=== PATIENT | male | born 1945 | race Caucasian/White ===

== ENCOUNTER → 2017-03-21 | Outpatient (CLI) | payer OTHER, BC ==
[~2017-03-21] MED LIST: GADOBUTROL 10 ML VIAL IVP ONE
== END ==
LOC: FIMAGING 06:38
PROVIDERS: ATTEND Internal Medicine Hematology & Oncology
DX: Z12.89 Encounter for screening for malignant neoplasm of other sites (principal); C15.9 Malignant neoplasm of esophagus, unspecified
CPT/HCPCS: 70553; A9585

== ENCOUNTER 2018-12-20 04:57 | Inpatient (IN) | payer OTHER, BC ==
[2018-12-20] MEDS ORDERED: ACETAMINOPHEN 500 MG TAB PO ONE (05:19)
[2018-12-20] MEDS ORDERED: ceFAZolin 2 GM/DEXTROSE 100 ML IV ONE (05:19)
[2018-12-20] MEDS ORDERED: GABAPENTIN 300 MG CAP PO ONE (05:19)
[2018-12-20] MEDS ORDERED: morphINE SR 15 MG TAB PO ONE (05:19)
[2018-12-20] MEDS ORDERED: LR 1,000 ML IV ONE (05:20)
[2018-12-20] MEDS ORDERED: LIDOCAINE 1% 2 ML INJ ID PRN (05:20)
[2018-12-20] MEDS ORDERED: GADOBUTROL 10 ML VIAL IVP ONE (06:10)
[2018-12-20] MEDS ORDERED: THROMBIN (BOVINE) 5,000 UNIT VIAL TP ONE (06:47)
[2018-12-20] MEDS ORDERED: MANNITOL 20% 100 GM/500 ML BAG IV ONE (06:47)
[2018-12-20] MEDS ORDERED: AVITENE POWDER 1 GM JAR TP ONE (06:47)
[2018-12-20] MEDS ORDERED: CHLORHEXIDINE GLUC HIBICLENS 118 ML BTL TP ONE (06:47)
[2018-12-20] MEDS ORDERED: BUPIVACAINE 0.25% 30 ML SDV ONE (06:47)
[2018-12-20] MEDS ORDERED: EPINEPHrine 1 MG/ML INJ ONE (06:48)
[2018-12-20] MEDS ORDERED: REMIFENTANIL HCL 1 MG VIAL ONE ×2 (06:48→10:40)
[2018-12-20] MEDS ORDERED: fentaNYL 100 MCG/2 ML INJ ONE (06:48)
[2018-12-20] MEDS ORDERED: PROPOFOL/EMULSION 500 MG/50 ML BOTTLE IV ONE ×2 (06:49→10:39)
[2018-12-20] MEDS ORDERED: BACITRACIN 50,000 UNITS/10 ML SYR IRR ONE (06:49)
[2018-12-20] MEDS ORDERED: PROPOFOL 200 MG/20 ML VIAL ONE (06:49)
--- NOTE | 2018-12-20 06:50 | PDHPUP ---
History & Physical Update H&P update statement: This history and physical update is based on an assessment of the patient which was completed after admission or registration (within 24 hours), but prior to the surgery/procedure. H&P update: H&P reviewed & patient examined, no change in patient's condition since H&P completed (Consents signed. Site marked. All questions answered. )
[2018-12-20] MEDS ORDERED: LIDOCAINE 2% 100 MG/5 ML SYR ONE (06:52)
[2018-12-20] MEDS ORDERED: MIDAZOLAM 2 MG/2 ML VIAL IVP ONE (07:12)
--- NOTE | 2018-12-20 07:12 | PDANEPAE ---
ANE History of Present Illness posterior tumor here for crani ANE Past Medical History - Cardiovascular History Hx Hypertension: Yes Hx Arrhythmias: No Hx Chest Pain: No Hx Coronary Artery / Peripheral Vascular Disease: No Hx CHF / Valvular Disease: No Hx Palpitations: No Cardiovascular History Comment: pcp monitors bp medications - Pulmonary History Hx COPD: No Hx Asthma/Reactive Airway Disease: No Hx Recent Upper Respiratory Infection: No Hx Oxygen in Use at Home: No Hx Sleep Apnea: No Sleep Apnea Screening Result - Last Documented: Positive Pulmonary History Comment: iza triggers - Neurologic History Hx Cerebrovascular Accident: No Hx Seizures: No Hx Dementia: No Neurologic History Comment: DDD. cerebellar mass currently - Endocrine History Hx Diabetes: Yes Endocrine History Comment: type 2 no medications currently - Renal History Hx Renal Disorders: Yes Renal History Comment: hx of kidney stones. BPH. hx of urolift with Gwyn - Liver History Hx Hepatic Disorders: No - Neurological & Psychiatric Hx Hx Neurological and Psychiatric Disorders: No - Cancer History Hx Cancer: Yes Cancer History Comment: stomach/ esophagus with chemo - Congenital Disorder History Hx Congenital Disorders: No - GI History Hx Gastrointestinal Disorders: Yes Gastrointestinal History Comment: reflux - Other Health History Other Health History: reading glasses - Chronic Pain History Chronic Pain: Yes (back) - Surgical History Prior Surgeries: appy. urolift. port placement. EGD. right partial knee with Li 04/16/14. left knee scope with Li 09/12/12. right knee. RT THUMB. nephrolithiasis ANE Review of Systems Review of Systems: - Exercise capacity METS (RN): 4 METS ANE Patient History - Allergies Allergies/Adverse Reactions: contrast dye Allergy (Uncoded 12/19/18 15:42) Hives - Home Medications Home Medications: Aspirin [Aspirin 81mg (*)] 04/08/14 [Last Taken 12/12/18] celeCOXIB [Celebrex (*)] 04/08/14 [Last Taken 12/13/18] Herbals/Supplements -Info Only 12/19/18 [Last Taken 12/12/18] Irbesartan 12/19/18 [Last Taken 12/20/18 04:00] Pantoprazole Sodium 12/19/18 [Last Taken 12/20/18 04:00] - NPO status NPO Status: no food or drink >8 hours NPO Since - Liquids (Date): 12/19/18 NPO Since - Liquids (Time): 22:00 NPO Since - Solids (Date): 12/19/18 NPO Since - Solids (Time): 18:00 - Anes Hx Anes Hx: no prior problems - Smoking Hx Smoking Status: Former smoker - Alcohol Use Alcohol Use: Rarely - Family Anes Hx Family Anes Hx: none Family Hx Anesthesia Complications: none ANE Labs/Vital Signs - Vital Signs Blood Pressure: 116/84 Heart Rate: 77 Respiratory Rate: 18 O2 Sat (%): 93 Height: 190.05 cm Weight: 86.183 kg ANE Physical Exam - Airway Neck exam: FROM Mallampati Score: Class 2 Mouth exam: normal dental/mouth exam - Pulmonary Pulmonary: no respiratory distress, clear to auscultation - Cardiovascular Cardiovascular: regular rate and rhythym, no murmur, rub, or gallop - ASA Status ASA Status: III ANE Anesthesia Plan Anesthesia Plan: general endotracheal anesthesia Lines/Monitors: arterial line, additional IV Total IV Anesthesia: Yes
[2018-12-20] MEDS ORDERED: THROMBIN (BOVINE) 20,000 UNIT VIAL TP ONE (07:33)
[2018-12-20] MEDS ORDERED: niCARdipine/NACL/200 ML BAG IV ONE (08:15)
[2018-12-20] MEDS ORDERED: GENTAMICIN SULFATE 80 MG/2 ML VIAL ONE (08:42)
[2018-12-20] MEDS ORDERED: HYDROGEN PEROXIDE 236 ML BOTTLE TP ONE (09:28)
[2018-12-20] MEDS ORDERED: ROCURONIUM 50 MG/5 ML VIAL ONE (10:10)
[2018-12-20] MEDS ORDERED: BACITRACIN ZINC 0.5 OZ OINTTUBE TP ONE (12:06)
[2018-12-20] MEDS ORDERED: PROMETHAZINE HCL 25 MG/ML INJ IVP PRN (12:26)
[2018-12-20] MEDS ORDERED: ACETAMINOPHEN 500 MG TAB PO PRN (12:26)
[2018-12-20] MEDS ORDERED: LR 500 ML IV PRN (12:26)
[2018-12-20] MEDS ORDERED: oxyCODONE IR 5 MG TAB PO PRN (12:26)
[2018-12-20] MEDS ORDERED: fentaNYL 100 MCG/2 ML INJ IVP PRN (12:26)
[2018-12-20] MEDS ORDERED: HYDROmorphONE/DILAUDID 2 MG/ML INJ IVP PRN (12:26)
[2018-12-20] MEDS ORDERED: ONDANSETRON 4 MG/2 ML VIAL IVP PRN (12:26)
[2018-12-20] MEDS ORDERED: HYDROCODONE/APAP 5/325 TAB PO PRN (12:26)
[2018-12-20] MEDS ORDERED: NALOXONE HCL 0.4 MG/ML INJ IVP PRN (12:26)
--- NOTE | 2018-12-20 12:27 | POSTANESTH ---
Post Anesthetic Evaluation Cardiovascular Status: Normal, Stable, Similar to Pre-Op Cond Respiratory Status: Normal, Stable, Similar to Pre-op Cond. Level of Consciousness/Mental Status: Can Participate in Eval, Alert and Oriented Pain Control: Adequate, Prn Tx Ordered Nausea/Vomiting Control: Adequate, Prn Tx Ordered Complications Possibly Related to Anesthesia: None Noted
[2018-12-20] MEDS ORDERED: BISACODYL 10 MG SUPP PR PRN (12:28)
[2018-12-20] MEDS ORDERED: POLYETHYLENE GLYCOL 3350 17 GM PKT PO PRN (12:28)
[2018-12-20] MEDS ORDERED: MAGNESIUM HYDROXIDE 30 ML UDCUP PO PRN (12:28)
[2018-12-20] MEDS ORDERED: LACTULOSE 20 GM/30 ML UDCUP PO PRN (12:28)
[2018-12-20] MEDS ORDERED: ACETAMINOPHEN 325 MG TAB PO PRN (12:28)
--- NOTE | 2018-12-20 12:39 | POSTOPPROG ---
Post Op Note Date of Operation: 12/20/18 Surgeon: Rufino Lutz Blower Blast Furnace: GUY Grijalva PAC Anesthesia: GET(General Endotracheal) Pre-op Diagnosis: right cerebellar brain lesion Post-op Diagnosis: right cerebellar brain lesion Indication: right cerebellar brain lesion Procedure: right cerebellar cranitomy Inf/Abcess present in the surg proc area at time of surgery?: No EBL: 50-100 Drains: Usman BENITEZ Addendum - Addendum .: S: Resting comfortably O: NAD A&Ox3 CN II-XII grossly MAEx4 5/5 and equal in BUE and BLE A/P 73 yo s/p right cerebellar craniotomy -Post op MRI pending -Path and microbiology cx pending -ICU for post op care -Decadron 4mg q6 -Advance deit as tolerated -DVT prophx: TEds, SCDs, Lovenox okay POD3 -Please notify NS with in change in neuro/motor exam
[2018-12-20] MEDS: NS W/ 20 KCl/L 1,000 ML IV SCH ×2 (13:49→23:53)
--- NOTE | 2018-12-20 14:36 | GOP ---
[f rep st] OPERATIVE REPORT DATE OF OPERATION: 12/20/2018 SURGEON: Rufino Lutz MD DANCE HALL HOST/HOSTESS: Rachel Grijalva PA-C. ANESTHESIA: General. PREOPERATIVE DIAGNOSIS: 1. Right-sided cerebellar mass with neurological deficit. 2. 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 POSTOPERATIVE DIAGNOSIS: 1. Right-sided cerebellar mass with neurological deficit. 2. 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 PROCEDURE PERFORMED: 1. Suboccipital craniotomy with right-sided open biopsy and gross total resection of cerebellar mass. 2. Use of intraoperative 3D Stealth navigation. 3. Use of intraoperative ultrasound. 4. Use of the operating microscope. 5. Use of intraoperative neuro monitoring. FINDINGS: per imaging with a liquified mass in the right cerebellum SPECIMENS: Tissue was sent both to Pathology for frozen analysis, as well as to Microbiology for analysis. ESTIMATED BLOOD LOSS: 150 mL. INDICATIONS: The patient is a very pleasant 73-year-old gentleman, who has a known history of squamous cell carcinoma and was seen in my office for spinal stenosis and difficulty with balance. He then fell a month or 2 ago while out of state and imaging demonstrated a large 4 cm right cerebellar mass, likely consistent with squamous cell carcinoma. Given the mass effect and size, I talked to his oncologist, Dr. Sarabia, who endorsed surgical biopsy and resection and/or debulking, followed by chemo and radiation therapy. I discussed these options with the patient and his and they agreed to proceed forth with surgery as described above. DESCRIPTION OF PROCEDURE: The patient was brought to the operating theater and underwent general endotracheal anesthesia without complication. He had Venodynes, PAYTON hose, and the appropriate lines placed by Anesthesia. He was placed in the Tejeda head-verdugo device and flipped prone onto the standard table, at which point he was affixed to the table in a tuck position. The patient's scalp was merged with the 3D navigation system. We then picked our entry point to give us the best approach to the right-sided cerebellar mass in the right suboccipital space. We marked out an incision over the midline with a hockey stick toward the right side over the right-sided transverse sinus. This area was then prepped and draped in the usual sterile surgical fashion. A time-out was completed per protocol, and the patient received antibiotics, mannitol, and steroids within 1 hour of incision. The patient was then hyperventilated. The incision was infiltrated with Marcaine with epinephrine. The incision was then taken down the midline through the avascular nuchal plane, and we completed a right-sided hockey stick over the right transverse sinus. The tissues were reflected in a subperiosteal dissection to the right side, and deep retractors were placed to maintain our exposure. We skeletonized the inferior aspect of the foramen magnum. Using the high speed drill, we completed a right-sided craniotomy over the cerebellar hemisphere and passed the bone off the field. The ultrasound was brought in the field to confirm the location of the tumor underneath the location of the craniotomy. We opened the dura with pickups and scissors following the superomedial aspects of the bone flap and with the base of the flap laterally. At this point, we confirmed the location of the tumor using the 3D Inverted Edge navigation system. I then made a small, approximately 2-3 cm horizontal corticectomy inferiorly in the right-sided cerebellar hemisphere. We continued to the center of the mass and all of a sudden, he had evidence of whitish- appearing liquified tissue which I was concerned about possible infection. We sent this off to microbiology, and Gram stain came back negative. At this point , I then used both gentle suction and microsurgical technique with the microscope including the CUSA to remove the tissues. There was no clear distinction between the tissue itself and the patient's cerebellum. I completed what I felt was a gross total resection. We obtained hemostasis with the bipolar. We then lined the surgical cavity with Surgicel. We then closed the dura to the overlying dura with running 4-0 Nurolon sutures. A small piece of duragen was placed over the dura. The bone was re-affixed to the overlying calvarium with the plating system. The wound was irrigated with gentamicin irrigation. We then closed the wound in multiple layers using Vicryl sutures for the deep layers and a running nylon stitch for the skin. The patient's wounds were dressed sterilely. He was flipped supine onto the transfer cart where he was taken out of the Anthony head-verdugo device. The patient was extubated and taken to recovery room in stable neurologic condition. There were no complications and no noted changes on neuromonitoring throughout the procedure. COMPLICATIONS: None. /[id number]/MODL MTDD
--- NOTE | 2018-12-20 14:58 | PDMN ---
Medical Necessity Medical necessity: Pt meets IP criteria as of 12/20/2018 per and [facility] ( Neurosurgery GRG, Craniectomy for excision of brain tumor); Medicare IP only procedure
[2018-12-20] MEDS: DEXAMETHASONE 4 MG/ML VIAL IVP SCH ×2 (17:03→23:52)
[2018-12-20] MEDS: SENNOSIDES/DOCUSATE SODIUM TAB PO SCH (21:10)
[2018-12-20] MEDS: METHOCARBAMOL 750 MG TAB PO PRN (21:10)
[2018-12-21] MEDS: DEXAMETHASONE 4 MG/ML VIAL IVP SCH ×2 (06:03→13:11)
[2018-12-21] MEDS ORDERED: GADOBUTROL 10 ML VIAL IVP ONE (08:15)
--- NOTE | 2018-12-21 08:58 | NEUSURGPN ---
Assessment/Plan: A/P 73 yo s/p right cerebellar craniotomy POD1 -Post op MRI pending -Path and microbiology cx pending -Continue Decadron 4mg q6 -Optimize pain management -DVT prophx: TEDs, SCDs, Lovenox okay POD3 -Please notify NS with in change in neuro/motor exam Subjective: Denies any visual changes or weakness. Has some low back pain from known degeneration/stenosis Objective: NAD A&Ox3 CN II-XII grossly PERRLA EOMI MAEx4 5/5 and equal in BUE and BLE Dressing with some sanguineous staining Catheter Insertion Date: 12/20/18 - Physician Discussed Patient with DrYamile: [facility] Physical Exam - Vitals, I&O, Labs I and O 12/20/18 12/21/18 12/22/18 05:59 05:59 05:59 Intake Total 3830 Output Total 2570 Balance 1260 Weight 86.183 kg 86.183 kg Intake: Oral (ml) 100 IV Intake (ml) 2409 IV Infused (ml) 1321 NS W/ 20 KCl/L 1,000 ml @ 1321 100 mls/hr IV CONT YARON Rx#:[id number] Output: Urine (ml) 2420 Catheter 2420 Estimated Blood Loss (ml) 150 Microbiology 12/20/18 09:13 Mycobacterial Smear (JESS) - Final Brain - Other 12/20/18 09:13 Gram Stain - Final Brain - Other 12/20/18 09:13 Gram Stain - Final Brain - Other 12/20/18 09:13 Gram Stain - Final Brain - Other Vital Signs Temp Pulse Resp BP Pulse Ox 36.6 C 112 H 20 163/85 H 90 L 12/21/18 08:00 12/21/18 08:00 12/21/18 08:00 12/21/18 08:00 12/21/18 08:00 ICD10 Worksheet Patient Problems: Problems Problem Status Onset Knee osteoarthritis Acute
[2018-12-21] MEDS: SENNOSIDES/DOCUSATE SODIUM TAB PO SCH ×2 (09:29→20:41)
--- NOTE | 2018-12-21 12:20 | ASMTCASEMG ---
Living Arrangements What is your living Answers: With Spouse arrangement? Who do you live with? Type Of Residence What kind of residence do Answers: House you live in? Discharge Plan Comments Coordination Status Comments Notes: Patient is a 73yo male who has a several week hx of worsening balance, gait, ataxia, and dizziness. Patient has elected to have surgery, suboccipital craniotomy with right cerebellar tumor open biopsy and resection. PT/OT therapy evals have been ordered. Dr. Sarabia is the patient's oncologist. D/C plan TBD. CM will follow. Date Signed: 12/21/2018 12:19 PM Electronically Signed By:Nat Dolan LCSW
[2018-12-21] MEDS ORDERED: *MD ORDERING ONLY-DEXAMETHASONE TAPER IVP/PO SCH (13:45)
[2018-12-21] MEDS: DEXAMETHASONE 4 MG TAB PO SCH (20:40)
[2018-12-22] MEDS: METHOCARBAMOL 750 MG TAB PO PRN ×3 (03:21→23:35)
[2018-12-22] MEDS: DEXAMETHASONE 4 MG TAB PO SCH ×3 (06:38→20:48)
[2018-12-22] MEDS: SENNOSIDES/DOCUSATE SODIUM TAB PO SCH ×2 (08:29→20:48)
--- NOTE | 2018-12-22 09:49 | NEUSURGPN ---
Assessment/Plan: Assessment/Plan: A/P 73 yo s/p right cerebellar craniotomy POD2 -Post op MRI shows good resection and a very small infarct near the resection cavity. This can be expected to see post surgery and the patient does not currently have any new deficits. -Path and microbiology cx pending- all cultures are negative thus far -Pathology is still pending. Oncology has been consulted as well. 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 Has some slight discomfort in his incision and his shoulders but this was treated well with Robaxin last night. Has been up with PT yesterday and went well. Objective: NAD A&Ox3 CN II-XII grossly PERRLA EOMI MAEx4 5/5 and equal in BUE and BLE Dressing with some sanguineous staining Catheter Insertion Date: 12/20/18 - Physician Discussed Patient with : [facility] Physical Exam - Vitals, I&O, Labs I and O 12/21/18 12/22/18 12/23/18 05:59 05:59 05:59 Intake Total 3830 750 Output Total 2570 Balance 1260 750 Weight 86.183 kg Intake: Oral (ml) 100 750 IV Intake (ml) 2409 IV Infused (ml) 1321 NS W/ 20 KCl/L 1,000 ml @ 1321 100 mls/hr IV CONT YARON Rx#:[id number] Output: Urine (ml) 2420 Catheter 2420 Estimated Blood Loss (ml) 150 Other: Number of Voids Catheter 1 Toilet 1 Microbiology 12/20/18 09:13 Gram Stain - Final Brain - Other 12/20/18 09:13 Gram Stain - Final Brain - Other 12/20/18 09:13 Gram Stain - Final Brain - Other Vital Signs Temp Pulse Resp BP Pulse Ox 36.7 C 74 14 145/86 H 94 12/22/18 07:56 12/22/18 07:56 12/22/18 07:56 12/22/18 07:56 12/22/18 07:56 ICD10 Worksheet Patient Problems: Problems Problem Status Onset Knee osteoarthritis Acute
--- NOTE | 2018-12-22 15:07 | ASMTCMCOM ---
CM Note CM Note Notes: Reviewed chart, spoke with Dr. Sparks regarding discharge plan of care, pt's progress. OT recommends home vs HHC. PT recommends home with [address] Sparks recommending home with home health care (HHC). Discharge plan remains unclear at this time. CM will continue to follow. Discharge Plan: Home with possible HHC and 24 hr supervision Date Signed: 12/22/2018 03:06 PM Electronically Signed By:Annie Delaney RN
[2018-12-23] MEDS: SENNOSIDES/DOCUSATE SODIUM TAB PO SCH ×2 (08:36→20:24)
[2018-12-23] MEDS: DEXAMETHASONE 4 MG TAB PO SCH (08:36)
[2018-12-23] MEDS: IRBESARTAN 150 MG TAB PO SCH (08:36)
[2018-12-23] MEDS: ENOXAPARIN 40 MG/0.4 ML SYR SC SCH (08:36)
--- NOTE | 2018-12-23 09:44 | NEUSURGPN ---
Assessment/Plan: Assessment/Plan: A/P 73 yo s/p right cerebellar craniotomy POD3 for brain compression d/t cerebellar mass -Post op MRI shows good resection and a very small infarct near the resection cavity. This can be expected to see post surgery and the patient does not currently have any new deficits. -Path and microbiology cx pending- all cultures are negative thus far -Pathology is still pending. Oncology has been consulted as well. 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 Take head wrap off and dress incision with bacitracin -Dispo planning- pending therapies but most likely tomorrow with [facility] -DVT prophx: TEDs, SCDs, Lovenox okay POD3 -Please notify NS with in change in neuro/motor exam Subjective: Doing well, had a better day yesterday with therapies. Has some mild incisional pain, but no headaches. He still feels very fatigued. Objective: NAD A&Ox3 CN II-XII grossly PERRLA EOMI MAEx4 5/5 and equal in BUE and BLE Dressing with some sanguineous staining Catheter Insertion Date: 12/20/18 - Physician Discussed Patient with : [facility] Physical Exam - Vitals, I&O, Labs I and O 12/22/18 12/23/18 12/24/18 05:59 05:59 05:59 Intake Total 750 400 Balance 750 400 Intake: Oral (ml) 750 400 Other: Intake Quantity Yes Sufficient Number of Voids Catheter 1 Toilet 1 1 1 Number of Stools Toilet 1 Microbiology 12/20/18 09:13 Gram Stain - Final Brain - Other 12/20/18 09:13 Gram Stain - Final Brain - Other 12/20/18 09:13 Gram Stain - Final Brain - Other Vital Signs Temp Pulse Resp BP Pulse Ox 36.9 C 89 15 124/104 H 91 L 12/23/18 07:50 12/23/18 07:50 12/23/18 07:50 12/23/18 07:50 12/23/18 07:50 ICD10 Worksheet Patient Problems: Problems Problem Status Onset Knee osteoarthritis Acute
[2018-12-23] MEDS: DEXAMETHASONE 2 MG TAB PO SCH (20:24)
[2018-12-24] MEDS: IRBESARTAN 150 MG TAB PO SCH (08:36)
[2018-12-24 08:37] VITALS: BP 127/88
[2018-12-24] MEDS: DEXAMETHASONE 2 MG TAB PO SCH (08:37)
[2018-12-24] MEDS: SENNOSIDES/DOCUSATE SODIUM TAB PO SCH (08:37)
[2018-12-24] MEDS: ENOXAPARIN 40 MG/0.4 ML SYR SC SCH (08:37)
--- NOTE | 2018-12-24 08:49 | NEUSURGPN ---
Assessment/Plan: A/P 73 yo s/p right cerebellar craniotomy POD4 for brain compression d/t cerebellar mass -Post op MRI shows good resection and a very small infarct near the resection cavity. This can be expected to see post surgery and the patient does not currently have any new deficits. Discussed with patient this morning -Path and microbiology cx pending- all cultures are negative thus far -Pathology is still pending. Oncology has been notified. 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 Take head wrap off and dress incision with bacitracin -Dispo planning-likely to rehab as patient notes his gait is still unstable. Okay to d/c once bed available -DVT prophx: TEDs, SCDs, Lovenox -Please notify NS with in change in neuro/motor exam -Discussed with Dr. Lutz Subjective: Denies any headache, nausea, dizziness Objective: NAD A&Ox3 CN II-XII grossly PERRLA EOMI MAEx4 03/24 and equal in BUE and BLE Incision c/d/i Catheter Insertion Date: 12/20/18 - Physician Discussed Patient with : [facility] Physical Exam - Vitals, I&O, Labs I and O 12/23/18 12/24/18 12/25/18 05:59 05:59 05:59 Intake Total 400 250 Balance 400 250 Intake: Oral (ml) 400 250 Other: Intake Quantity Yes Yes Sufficient Number of Voids Toilet 1 1 Number of Stools Toilet 1 Microbiology 12/20/18 09:13 Gram Stain - Final Brain - Other 12/20/18 09:13 Gram Stain - Final Brain - Other 12/20/18 09:13 Gram Stain - Final Brain - Other Vital Signs Temp Pulse Resp BP Pulse Ox 37.1 C 79 15 127/88 H 96 12/24/18 07:18 12/24/18 07:18 12/24/18 00:00 12/24/18 08:36 12/24/18 07:18 ICD10 Worksheet Patient Problems: Problems Problem Status Onset Knee osteoarthritis Acute
--- NOTE | 2018-12-24 09:33 | ASMTCMCOM ---
CM Note CM Note Notes: CM met with pt and Susana who requested a SNF referral be sent to [facility] due to close proximity to their house in [place]. CM submit referral. CM to follow. Plan: [facility] once medically stable. Date Signed: 12/24/2018 09:33 AM Electronically Signed By:PRUDENCE Berkowitz
--- NOTE | 2018-12-24 10:57 | PDIAF ---
- Diagnosis Code Status: Full Code - Medication Management Discharge Medications: electronically signed and located in the Home Medication List. - Orders Services needed: Registered Nurse, Physical Therapy, Occupational Therapy Isolation Type: None Diet Recommendation: no restrictions on diet Additional Instructions: Follow up in 2-3 weeks to remove sutures. Keep incision clean and dry - Follow Up Care Current Providers and Referrals: Jose Luis Mclaughlin MD [Primary Care Provider] -
--- NOTE | 2018-12-24 11:14 | ASMTDCNOTE ---
Case Management Discharge Discharge Order Complete? Answers: Yes Patient to Obtain Answers: Other Notes: [facility] to arrange Medications Transportation Arranged Answers: Other Notes: [facility] to arrange Case Management Transport Answers: Yes Form Complete Faxed Final Orders Answers: Yes Agency/Facility Transfer Answers: Yes Report Printed & Faxed to Receiving Agency Family Notified Answers: Yes Discharge Comments Notes: Pt was accepted by [facility]. Pt and his are aware of discharge plans. [facility] to arrange transportation. No other CM needs identified. Date Signed: 12/24/2018 11:14 AM Electronically Signed By:PRUDENCE Berkowitz
--- NOTE | 2018-12-24 11:16 | ASMTLACE ---
LACE Length of stay for Answers: 3 days current admission Acuity / Level of Answers: Yes Care: Did the patient have an inpatient admission? Comorbidities - select Answers: Any tumor (including all that apply lymphoma or leukemia) Diabetes (uncontrolled or controlled) Opioid dependence / Chronic pain Other Notes: HTN # of Emergency department Answers: 0 visits in the last 6 months Score: 14 Date Signed: 12/24/2018 11:15 AM Electronically Signed By:PRUDECNE Berkowitz
[2018-12-24] MEDS ORDERED: DEXAMETHASONE 2 MG TAB PO SCH (21:00)
== END 2018-12-24 16:00 | DRG 25 ==
LOC: FIMAGING 04:57 → EDSTATUS 07:15 → F2N 12:28
PROVIDERS: ADMIT Neurological Surgery; ATTEND Neurological Surgery
DX: C79.31 Secondary malignant neoplasm of brain (principal); G93.5 Compression of brain; E11.9 Type 2 diabetes mellitus without complications; I10 Essential (primary) hypertension; G47.33 Obstructive sleep apnea (adult) (pediatric); N40.0 Benign prostatic hyperplasia without lower urinary tract symptoms; Z85.820 Personal history of malignant melanoma of skin; Z85.01 Personal history of malignant neoplasm of esophagus
CPT/HCPCS: 97110-GP; 97116-GP; 97161-GP; 97166-GO; 97530-GP; 97535-GO; A9585; C1713; J0171; J0690; J1100; J1580; J1650; J2001; J2704; J3010

== ENCOUNTER → 2019-05-14 | Outpatient (CLI) | payer OTHER, BC | LOC: FIMAGING 09:40 ==